=== PATIENT | female | born 1990 ===

== ENCOUNTER 2017-02-12 15:57 | Emergency (ER) | payer MEDICAID, OTHER ==
[2017-02-12 16:04] VITALS: BMI 39.3
--- NOTE | 2017-02-12 16:27 | ED PDOC ---
Arrival/HPI - General Chief Complaint: Shortness Of Breath Time Seen by Provider: 02/12/17 16:10 Historian: Patient - History of Present Illness Narrative History of Present Illness (Text): 02/12/17 16:22 A 26 year old female currently 28 weeks , who denies any past medical history, presents to the emergency department complaining of shortness of breath since this morning. Patient notes associated chest pressure, but denies any relieving or exacerbating factors. Patient notes nasal congestion but denies any fever, chills, nausea, vomiting, abdominal pain, urinary symptoms, vaginal bleeding, cough, sore throat or any other complaints. Patient denies any recent travel or surgeries. 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 Autumn Mendiola Time/Duration: Other (this morning) Symptom Course: Unchanged Quality: Pressure Context: Home Past Medical History - Provider Review Nursing Documentation Reviewed: Yes - Cardiac Hx Cardiac Disorders: No - Pulmonary Hx Respiratory Disorders: No - Neurological Hx Neurological Disorder: No - HEENT Hx HEENT Disorder: No - Renal Hx Renal Disorder: No - Endocrine/Metabolic Hx Endocrine Disorders: No - Hematological/Oncological Hx Anemia: Yes - Integumentary Hx Dermatological Disorder: No - Musculoskeletal/Rheumatological Hx Musculoskeletal Disorders: No - Gastrointestinal Hx Gastritis: Yes - Genitourinary/Gynecological Hx Genitourinary Disorders: No - Psychiatric Hx Psychophysiologic Disorder: No Hx Substance Use: No - Surgical History Hx Section: Yes Hx Orthopedic Surgery: Yes (left shoulder) - Anesthesia Hx Anesthesia: Yes Hx Anesthesia Reactions: No Hx Malignant Hyperthermia: No - Suicidal Assessment Feels Threatened In Home Enviroment: No Family/Social History - Physician Review Nursing Documentation Reviewed: Yes Family/Social History: No Known Family HX Smoking Status: Never Smoked Hx Alcohol Use: No Hx Substance Use: No Allergies/Home Meds Allergies/Adverse Reactions: Allergies No Known Allergies Allergy (Verified 02/12/17 16:04) Home Medications: Home Meds Medication Instructions Recorded Confirmed No Known Home Med 02/12/17 02/12/17 Review of Systems - Physician Review All systems were reviewed & negative as marked: Yes - Review of Systems Constitutional: absent: Fevers, Night Sweats ENT: Sinus Congestion. absent: Sore Throat Respiratory: SOB. absent: Cough Cardiovascular: Other (Chest pressure) Gastrointestinal: absent: Abdominal Pain, Nausea, Vomiting Genitourinary Female: absent: Dysuria, Frequency, Hematuria, Vaginal Bleeding Physical Exam Vital Signs Reviewed: Yes Vital Signs Temp Pulse Resp BP Pulse Ox 02/12/17 18:28 90 18 129/78 100 02/12/17 16:13 14 02/12/17 16:05 97.7 F 110 H 19 134/77 99 02/12/17 16:03 97.7 F 110 H 19 134/77 99 Temperature: Afebrile Blood Pressure: Normal Pulse: Tachycardic Respiratory Rate: Normal Appearance: Positive for: Well-Appearing, Non-Toxic, Comfortable Pain Distress: None Mental Status: Positive for: Alert and Oriented X 3 - Systems Exam Head: Present: Atraumatic, Normocephalic Pupils: Present: PERRL Extroacular Muscles: Present: EOMI Conjunctiva: Present: Normal Mouth: Present: Moist Mucous Membranes Neck: Present: Normal Range of Motion Respiratory/Chest: Present: Clear to Auscultation, Good Air Exchange. No: Respiratory Distress, Accessory Muscle Use Cardiovascular: Present: Regular Rate and Rhythm, Normal S1, S2. No: Murmurs Abdomen: Present: Normal Bowel Sounds, Other (Gravid). No: Tenderness, Distention, Peritoneal Signs Back: Present: Normal Inspection Upper Extremity: Present: Normal Inspection. No: Cyanosis, Edema Lower Extremity: Present: Normal Inspection, NORMAL PULSES. No: Edema, CALF TENDERNESS, Tenderness Neurological: Present: GCS=15, CN II-XII Intact, Speech Normal Skin: Present: Warm, Dry, Normal Color. No: Rashes Psychiatric: Present: Alert, Oriented x 3, Normal Insight, Normal Concentration Medical Decision Making ED Course and Treatment: 02/12/17 16:22 Impression: A 26 year old female with shortness of breath. Patient notes chest pressure and nasal congestion. Differential Diagnosis included but are not limited to: Pulmonary Embolism Plan: -- Angio Chest CT -- Duplex lower extremity ultrasound -- age ultrasound -- EKG -- Labs -- Reassess and disposition Progress Notes: EKG shows NSR at 98 BPM with [id number] pattern, no prior EKG for comparison. Interpreted by me. Discussed risk factors with patient for chest CT concerning possible PE, including exposure to radiation. Patient agreed for CT imaging to be done. 02/12/17 19:[address] Angio Chest IMPRESSION: Limited study. The opacification of the peripheral pulmonary arteries is limited in this study. No evidence of central pulmonary embolism. No evidence of pneumonia or acute pulmonary disease. Discussed results with Radiologist who read the exam. He states its a limited exam. I discussed the results with patient who agreed to a Perfusion study. Patient signed out to Dr. Darrion Steele who will f/u study and reevaluate. Patient feels better. HR improved. - Lab Interpretations Lab Results: 02/12/17 16:28 02/12/17 16:28 Lab Results 02/12/17 16:28: Sodium 137, Chloride 106, Potassium 4.2, Carbon Dioxide 24, Anion Gap 11, BUN 7, Creatinine 0.6 L, Est GFR ( Amer) > 60, Est GFR (Non -Af Amer) > 60, Random Glucose 92, Calcium 9.5, Lactate Dehydrogenase 650, Total Creatine Kinase 45, Troponin I < 0.01, NT-Pro-B Natriuret Pep 52.9 02/12/17 16:28: pO2 31, VBG pH 7.42, VBG pCO2 41.0, VBG HCO3 26.6, VBG Total CO2 27.9, VBG O2 Sat (Calc) 66.8 H, VBG Base Excess 1.9, VBG Potassium 3.8, Sodium 136.0, Chloride 106.0, Glucose 94, Lactate 1.0, FiO2 21.0, Venous Blood Potassium 3.8 02/12/17 16:28: PT 11.3, INR 1.04, APTT 29.5 02/12/17 16:28: WBC 15.2 H, RBC 4.36, Hgb 11.2 L, Hct 35.2 L, MCV 80.7, MCH 25.7 , MCHC 31.8, RDW 15.8 H, Plt Count 332, MPV 11.0, Gran % 74.0 H, Lymph % (Auto) 17.9 L, [place] % (Auto) 5.3, Eos % (Auto) 2.5, Baso % (Auto) 0.3, Gran # 11.24 H, Lymph # 2.7, [place] # 0.8 H, Eos # 0.4, Baso # 0.05 I have reviewed the lab results: Yes - RAD Interpretation Radiology Orders: 02/12/17 16:20 ANGIO CHEST PE PROTOCOL [CT] Stat DUPLEX LOWER EXTRM VEIN BILAT [US] Stat 02/12/17 16:23 AGE [US] Stat 02/12/17 19:09 LUNG PERFUSION SCAN [NM] Stat - Scribe Statement The provider has reviewed the documentation as recorded by the Aprilibyung Smith Provider Scribe Attestation: All medical record entries made by the Scribe were at my direction and personally dictated by me. I have reviewed the chart and agree that the record accurately reflects my personal performance of the history, physical exam, medical decision making, and the department course for this patient. I have also personally directed, reviewed, and agree with the discharge instructions and disposition. Disposition/Present on Arrival - Present on Arrival Any Indicators Present on Arrival: No History of DVT/PE: No History of Uncontrolled Diabetes: No Urinary Catheter: No History of Decub. Ulcer: No History Surgical Site Infection Following: None - Disposition Have Diagnosis and Disposition been Completed?: No Diagnosis: Dyspnea Disposition Time: 19:24 Condition: FAIR Forms: [employer] (Wolof)
[2017-02-12 17:02] LABS: VENOUS BLOOD GAS BASE EXCESS 1.9 mmol/L (0.0-2.0); VENOUS BLOOD PH 7.42 (7.32-7.43)
[2017-02-12 17:07] LABS: BASO # 0.05 K/mm3 (0.0-2.0); BASO % 0.3 % (0.0-3.0); EOS # 0.4 (0.0-0.7); EOS % 2.5 % (1.5-5.0); GRAN # 11.24 (1.4-6.5); HEMATOCRIT 35.2 % (36.0-48.0); LYMPH # 2.7 (1.2-3.4); LYMPH % 17.9 % (22.0-35.0); MEAN CELL VOLUME 80.7 fl (80.0-105.0); MEAN CORPUSCULAR HEMOGLOBIN 25.7 pg (25.0-35.0); MEAN CORPUSCULAR HGB CONC 31.8 g/dl (31.0-37.0); MONO # 0.8 (0.1-0.6); MONO % 5.3 % (1.0-6.0); RED CELL DISTRIBUTION WIDTH 15.8 % (11.5-14.5); WHITE BLOOD COUNT 15.2 10^3/ul (4.5-11.0)
[2017-02-12 17:10] LABS: INR 1.04 (0.93-1.08)
[2017-02-12 17:11] LABS: PARTIAL THROMBOPLASTIN TIME 29.5 Seconds (25.1-36.5)
[2017-02-12 17:40] LABS: TROPONIN I < 0.01 ng/mL
[2017-02-12 17:50] LABS: BLOOD UREA NITROGEN 7 mg/dL (7-21); CALCIUM 9.5 mg/dL (8.4-10.5); CARBON DIOXIDE 24 mmol/L (21-33); CHLORIDE 106 mmol/L (98-107); GFR AFRICAN-AMERICAN > 60; GLUCOSE,RANDOM 92 mg/dL (70-110); SODIUM 137 mmol/L (132-148)
[2017-02-12 17:51] LABS: POTASSIUM 4.2 mmol/L (3.6-5.0)
--- NOTE | 2017-02-12 17:54 | US ---
PROCEDURE: Bilateral lower extremity venous duplex Doppler. HISTORY: r/o DVT COMPARISON: None available. TECHNIQUE: Bilateral common femoral, superficial femoral, popliteal and posterior tibial veins were evaluated. Flow was assessed with color Doppler, compressibility, assessment of phasic flow and augmentation response. FINDINGS: COMMON FEMORAL VEIN: Right CFV: Unremarkable. Left CFV: Unremarkable. SUPERFICIAL FEMORAL VEIN: Right SFV: Unremarkable. Left SFV: Unremarkable. POPLITEAL VEIN: Right Popliteal: Unremarkable. Left Popliteal: Unremarkable. POSTERIOR TIBIAL VEIN: Right PTV: Unremarkable. Left PTV: Unremarkable. OTHER FINDINGS: None. IMPRESSION: No evidence of deep venous thrombosis.
[2017-02-12] MEDS ORDERED: Iohexol 350 MG/100 ML VIAL ONE (18:07)
--- NOTE | 2017-02-12 18:21 | US ---
PROCEDURE: OB Pelvic Ultrasound HISTORY: 28 weeks preg COMPARISON: None available. FINDINGS: UTERUS: Gestational sac: Single intrauterine fetus in cephalic presentation. Heart rate: 161 Bpm. BPD: 7.08 cm corresponding to 28 weeks and 3 days of gestational age. HC: 26.1 cm corresponding to 28 weeks and 3 days of gestational age. AC: 23.9 cm corresponding to 28 weeks and 2 days of gestational age. FL: 5.3 cm corresponding to 28 weeks and 3 days of gestational age. age (Ultrasound estimated): 28 weeks and 3 days Gay-gestational hemorrhage: None. Date of delivery (Ultrasound estimated) : 05/04/2017 Placenta is anterior. CERVIX: Long and closed. No cervical abnormality seen. RIGHT OVARY: Not visualized LEFT OVARY: Not visualized FREE FLUID: None. OTHER FINDINGS: None. IMPRESSION: Single live intrauterine fetus in cephalic presentation with mean gestational age of 28 weeks and 3 days. The estimated date of delivery by ultrasound is 05/04/2017. Please note this is a limited OB ultrasound done in the emergency department, dedicated follow-up anatomic survey is advised.
[2017-02-12 18:29] VITALS: RESP 18
--- NOTE | 2017-02-12 18:54 | CT ---
PROCEDURE: CT Chest with contrast (Pulmonary Angiogram) HISTORY: sob r/o PE COMPARISON: None available. TECHNIQUE: Axial computed tomography images were obtained of the chest in the pulmonary arterial phase of enhancement. Coronal and sagittal reformatted images were created and reviewed. Intravenous contrast dose: 91 mL Omnipaque 350 Radiation dose: Total exam DLP = 557.83 mGy-cm. This CT exam was performed using one or more of the following dose reduction techniques: Automated exposure control, adjustment of the mA and/or kV according to patient size, and/or use of iterative reconstruction technique. FINDINGS: PULMONARY ARTERIES: Limited opacification of the pulmonary arteries in this exam. No evidence of central pulmonary embolus. The assessment of the peripheral pulmonary arteries is limited. AORTA: No acute findings. No thoracic aortic aneurysm. LUNGS: Unremarkable. No nodule, mass or pulmonary consolidation. PLEURAL SPACES: Unremarkable. No effusion or pneuomothorax. HEART: Unremarkable. No cardiomegaly. No significant pericardial effusion. LYMPH NODES: No lymphadenopathy. BONES, CHEST WALL: Unremarkable. No fracture or destructive lesion OTHER FINDINGS: Unremarkable. IMPRESSION: Limited study. The opacification of the peripheral pulmonary arteries is limited in this study. No evidence of central pulmonary embolism. No evidence of pneumonia or acute pulmonary disease.
[2017-02-12 21:56] LABS: URINE APPEARANCE CLEAR (CLEAR); URINE BILIRUBIN NEGATIVE (NEGATIVE); URINE BLOOD NEGATIVE (NEGATIVE); URINE COLOR YELLOW (YELLOW); URINE GLUCOSE (UA) NEGATIVE (NEGATIVE); URINE KETONE NEGATIVE (NEGATIVE); URINE LEUKOCYTE ESTERASE NEGATIVE Leu/uL (NEGATIVE); URINE PROTEIN NEGATIVE mg/dL (<30 mg/dL); URINE UROBILINOGEN 0.2 E.U./dL (<1 E.U./dL)
[2017-02-12 23:36] VITALS: BP 123/68; PULSE 103; TEMP 98.1; O2SAT 99
--- NOTE | 2017-02-13 05:57 | ED PDOC ---
Physical Exam Vital Signs Reviewed: Yes Vital Signs Temp Pulse Resp BP Pulse Ox 02/12/17 23:35 98.1 F 103 H 18 123/68 99 02/12/17 18:28 90 18 129/78 100 02/12/17 16:13 14 02/12/17 16:05 97.7 F 110 H 19 134/77 99 02/12/17 16:03 97.7 F 110 H 19 134/77 99 Temperature: Afebrile Blood Pressure: Normal Pulse: Tachycardic Respiratory Rate: Normal Appearance: Positive for: Well-Appearing, Non-Toxic, Comfortable Pain Distress: None Mental Status: Positive for: Alert and Oriented X 3 Medical Decision Making ED Course and Treatment: 02/12/17 20:00 Case signed out to me, pending study, reevaluation and final disposition. 02/12/17 22:00 Patient is in no acute distress. NM Lung Perfusion Scan FINDINGS: Perfusion: Unremarkable. No perfusion defects. Homogeneous uptake throughout the lungs bilaterally. IMPRESSION: No acute findings. No signs of perfusion defects to suggest PE. Dictated and Authenticated by: Sagar Langley MD 02/12/2017 11:35 PM Eastern Time ([place] & [place]) On re-evaluation, patient feels better and is in no acute distress. I have discussed the results and plan with the patient, who expresses understanding. Patient in agreement with plan to be discharged home. Patient is stable for discharge. Patient was instructed to follow up with physician or return if symptoms worsen or new concerning symptoms arise. - Lab Interpretations Lab Results: 02/12/17 16:28 02/12/17 16:28 Lab Results 02/12/17 21:21: Urine Color Yellow, Urine Appearance Clear, Urine pH 7.0, Ur Specific [place] 1.020, Urine Protein Negative, Urine Glucose (UA) Negative, Urine Ketones Negative, Urine Blood Negative, Urine Nitrate Negative, Urine Bilirubin Negative, Urine Urobilinogen 0.2, Ur Leukocyte Esterase Negative 02/12/17 16:28: Sodium 137, Chloride 106, Potassium 4.2, Carbon Dioxide 24, Anion Gap 11, BUN 7, Creatinine 0.6 L, Est GFR ( Amer) > 60, Est GFR (Non -Af Amer) > 60, Random Glucose 92, Calcium 9.5, Lactate Dehydrogenase 650, Total Creatine Kinase 45, Troponin I < 0.01, NT-Pro-B Natriuret Pep 52.9 02/12/17 16:28: pO2 31, VBG pH 7.42, VBG pCO2 41.0, VBG HCO3 26.6, VBG Total CO2 27.9, VBG O2 Sat (Calc) 66.8 H, VBG Base Excess 1.9, VBG Potassium 3.8, Sodium 136.0, Chloride 106.0, Glucose 94, Lactate 1.0, FiO2 21.0, Venous Blood Potassium 3.8 02/12/17 16:28: PT 11.3, INR 1.04, APTT 29.5 02/12/17 16:28: WBC 15.2 H, RBC 4.36, Hgb 11.2 L, Hct 35.2 L, MCV 80.7, MCH 25.7 , MCHC 31.8, RDW 15.8 H, Plt Count 332, MPV 11.0, Gran % 74.0 H, Lymph % (Auto) 17.9 L, [place] % (Auto) 5.3, Eos % (Auto) 2.5, Baso % (Auto) 0.3, Gran # 11.24 H, Lymph # 2.7, [place] # 0.8 H, Eos # 0.4, Baso # 0.05 I have reviewed the lab results: Yes - RAD Interpretation Radiology Orders: 02/12/17 16:20 ANGIO CHEST PE PROTOCOL [CT] Stat DUPLEX LOWER EXTRM VEIN BILAT [US] Stat 02/12/17 16:23 AGE [US] Stat 02/12/17 19:09 LUNG PERFUSION SCAN [NM] Stat - Scribe Statement The provider has reviewed the documentation as recorded by the Yosef Long Provider Scribe Attestation: All medical record entries made by the Scribyung were at my direction and personally dictated by me. I have reviewed the chart and agree that the record accurately reflects my personal performance of the history, physical exam, medical decision making, and the department course for this patient. I have also personally directed, reviewed, and agree with the discharge instructions and disposition. Disposition/Present on Arrival - Present on Arrival Any Indicators Present on Arrival: No History of DVT/PE: No History of Uncontrolled Diabetes: No Urinary Catheter: No History of Decub. Ulcer: No History Surgical Site Infection Following: None - Disposition Have Diagnosis and Disposition been Completed?: Yes Diagnosis: Dyspnea, Leukocytosis Disposition: HOME/ ROUTINE Disposition Time: 12:00 Condition: STABLE Discharge Instructions (ExitCare): Threatened Miscarriage (ED), (ED) , Leukocytosis (ED), Dyspnea (ED) Additional Instructions: please follow up with your doctor. return to er with worsening symptoms or concerns. Forms: [employer] (Norwegian)
--- NOTE | 2017-02-13 09:08 | NM ---
COMPARISON: TECHNIQUE: mCI technetium 99-m MAA administered intravenously. FINDINGS: VENTILATION COMPONENT: Not performed PERFUSION COMPONENT: Normal. The report concurs with the preliminary [facility] report IMPRESSION: Lowprobability ventilation perfusion scan for pulmonary embolism.
--- NOTE | 2017-02-13 21:09 | CARD ---
APPROVED REPORT EKG Measurement Heart [id number] <Conclusion> Normal sinus rhythm Nonspecific T wave abnormality Abnormal ECG
== END 2017-02-13 00:01 | disposition home or self-care (01) ==
LOC: ED 15:57
DX: O26.893 Other specified pregnancy related conditions, third trimester (principal); R06.00 Dyspnea, unspecified; D72.829 Elevated white blood cell count, unspecified; Z3A.28 28 weeks gestation of pregnancy
CPT/HCPCS: 71275; 76815; 78580; 80048; 81003; 82550; 82803; 83615; 83880; 84484; 85025; 85610; 85730; 93005; 93970; 99285; Q9967